=== PATIENT | female | born 1945 | race Hispanic/Latino ===

== ENCOUNTER 2017-12-18 23:51 | Emergency (ER) | payer MEDICARE ==
[2017-12-19] MEDS ORDERED: ASPIRIN 325 MG TABLET ONE (00:04)
[2017-12-19 00:11] LABS: BASOPHILS % (AUTO) 0.6 % (0.0-5.0); EOSINOPHILS % (AUTO) 1.3 % (0.0-8.0); HEMATOCRIT 38.2 % (36-48); LYMPHOCYTES % (AUTO) 33.8 % (21.0-51.0); MEAN CORPUSCULAR HEMOGLOBIN 29.7 pg (27.0-33.0); MEAN CORPUSCULAR HGB CONC 33.8 g/dL (32.0-36.0); MEAN CORPUSCULAR VOLUME 87.9 fL (79-99); MONOCYTES % (AUTO) 9.5 % (3.0-13.0); NEUTROPHILS % (AUTO) 54.8 % (40.0-77.0); PLATELET COUNT (AUTO) 330 K/uL (130-400); RED BLOOD CELL COUNT(AUTO) 4.35 MIL/uL (4.00-5.50); RED CELL DISTRIBUTION WIDTH 14.8 % (11.0-15.5); WHITE BLOOD COUNT (AUTO) 11.5 K/uL (4.8-10.8)
[2017-12-19 00:22] LABS: CREATININE 0.7 mg/dL (0.5-1.5); POTASSIUM 3.2 mmol/L (3.5-5.1)
[2017-12-19 00:37] LABS: ALBUMIN 3.2 g/dL (3.5-5.0); BILIRUBIN,TOTAL 0.5 mg/dL (0.2-1.0); CREATINE KINASE MB 0.7 ng/mL (0.5-3.6)
[2017-12-19 00:38] LABS: INR 0.94 (0.85-1.15); PARTIAL THROMBOPLASTIN TIME 28.7 SEC (26.3-35.5); PROTHROMBIN TIME 9.9 SEC (9.6-11.6)
== END 2017-12-19 03:03 | disposition home or self-care (01) ==
LOC: EDH 23:51
DX: R07.89 Other chest pain (principal); I10 Essential (primary) hypertension; E78.5 Hyperlipidemia, unspecified; I25.10 Atherosclerotic heart disease of native coronary artery without angina pectoris; Z95.818 Presence of other cardiac implants and grafts; Z72.0 Tobacco use
CPT/HCPCS: 36415; 71045; 80053; 82550; 82553; 83874; 84484; 85025; 85610; 85730; 93005; 94761

== ENCOUNTER 2022-01-22 12:44 | Emergency (ER) | payer MEDICARE ==
[~2022-01-22] VITALS: Ht 160 cm; Wt 65.8 kg
[2022-01-22 15:12] VITALS: BP 159/68
[2022-01-22] MEDS ORDERED: KETOROLAC 30MG VIAL (30MG/ML) IM STA (15:36)
[2022-01-22] MEDS ORDERED: NAPR375T6 PO (15:38)
== END 2022-01-22 16:28 | disposition home or self-care (01) ==
LOC: EDH 12:44
DX: S80.02XA Contusion of left knee, initial encounter (principal); M25.552 Pain in left hip; I10 Essential (primary) hypertension; Z90.49 Acquired absence of other specified parts of digestive tract; W18.39XA Other fall on same level, initial encounter; Y93.89 Activity, other specified; Y92.89 Other specified places as the place of occurrence of the external cause; Y99.8 Other external cause status
CPT/HCPCS: 99284; 29505; 73502; 73562; 96372; J1885

== ENCOUNTER 2024-08-15 20:45 | Emergency (ER) | payer MEDICARE ==
[~2024-08-15] VITALS: Ht 157.5 cm; Wt 59.0 kg
[~2024-08-15 20:45] MED LIST: NAPR-1505 PO
--- NOTE | 2024-08-15 21:03 | NUR ---
PATIENT WITH PROVIDER AT THIS TIME.
[2024-08-15] MEDS: LIDOCAINE 4% ADH..PATCH TP ONE (21:21)
--- NOTE | 2024-08-15 21:23 | ERN ---
General Chief Complaint: Neck Pain Stated Complaint: NECK PAIN X8 DAYS Time Seen by MD: 20:47 Source: patient History of Present Illness Initial Comments This is a 78-year-old female with a past medical history of hypertension, hypercholesterolemia, and hypothyroidism who presented to the emergency room with a 8 day history of neck pain. Patient states the pain was sudden in onset, intermittent in frequency, radiates towards her head, rates rates the pain as a 10/10. Patient denies any fall, or trauma. Denies any chest pain, shortness of breath or palpitations. Denies any lower extremity paresthesia, urinary or f ecal incontinence. Allergies: Coded Allergies: No Known Allergies (Unverified Allergy, Unknown, 01/22/22) Home Meds Active Scripts Meloxicam, Submicronized (Meloxicam) 10 Mg Capsule, 10 MG PO DAILY, #5 CAP Prov:CHAZ RAMIREZ MD 08/15/24 Lidocaine (Lidoderm Patch 5%) 5 % Patch, 1 PATCH TP DAILY for 15 Days, #30 PATCH 0 Refills may wear up to 12 hours Prov:CHAZ RAMIREZ MD 08/15/24 Diclofenac Sodium (Voltaren Arthritis Pain) 1 % Gel..gram., 20 GM TP TID, #2 G Prov:CHAZ RAMIREZ MD 08/15/24 Naproxen (Naproxen) 375 Mg Tablet.dr, 375 MG PO BID for 10 Days, #20 TAB Prov:DANIA GILLIAM MD 01/22/22 Past Medical History Past Medical History: Hypertension Past Surgical History: Cholecystectomy ROS Dictation Constitutional: No appetite loss, No fevers, chills , No night sweats, No weakness, fatigue Eye: No vision change, No redness, pain or discharge ENT: No hearing loss, ear pain or discharge, No nose bleeds, No sore throat, Neck: Neck pain Respiratory: No cough, shortness of breath, wheezing Cardiovascular: No chest pain,, palpitations, dyspnea, No edema Gastrointestinal: No abdominal pain, No nausea, vomiting, No diarrhea, constipa tion Genitourinary: No painful urination, No blood in urine, No urinary incontinence, No frequency or urgency Musculoskeletal: No joint pain, muscle pain, swelling or stiffness Neurological: No numbness, tingling, No weakness, tremors or seizures Psychiatric: : No depression, No anxiety, No sleep disturbance, No Memory changes Lymphatic: No easy bruising, No bleeding tendencies , No swollen lymph nodes A 13-point Review of Systems was assessed, all of which are negative except for HPI or as indicated above. Physical Exam Physical Exam Dictation General: Alert & Oriented, No acute distress. EENT: No conjunctival redness or discharge noted Tympanic membranes are clear, Normal hearing, Oral mucosa is moist, No pharyngeal erythema, No nasal discharge, No oral lesions. Neck: Non-tender, No jugular vein distention, No lymphadenopathy, No thyromegaly, Supple. Respiratory: Lungs are clear to auscultation, Respirations are non-labored, Breath sounds are equal, No chest wall tenderness, _. Cardiovascular: Normal rate, Normal rhythm, No murmur, Good pulses equal in all extremities, Normal peripheral perfusion, No edema. Gastrointestinal: Soft, Non-tender, Non-distended, Normal bowel sounds, No organomegaly, _. Musculoskeletal: Normal range of motion, Normal strength, tenderness, No swelling, No deformity, Normal gait. Integumentary: Warm, Dry, [place], Intact, No pallor, No rash. Neurologic: Alert, Oriented x4, Normal sensory, No focal defects Psychiatric: Cooperative, Appropriate mood & affect, Normal judgement, Non- suicidal. MDM Potential differential diagnoses include: * Degenerative spine disease * Cervical spine spondylosis Assessment: We will order a CT of the cervical spine and a CT of the head and brain without contrast. Will also order ketorolac 30 mg IV and a lidocaine patch for adequate pain management I will re-evaluate the patient after treatment and diagnostic exams have returned to determine whether they require further testing, can be safely discharged home, or need admission for further treatment and evaluation. Given the social determinants of health affecting care, including literacy, access to medical care, prescription drug management, and [id number] drugs, I will ensure that treatment plans are tailored accordingly. Revaluation : Patient is alert and oriented. States she feels a lot better the CT of the head and brain was unremarkable, cervical spine CT showed no fracture seen. Postoperative changes, degenerative joint disease with cervical spine sp ondylosis.. Disposition: Will discharge patient at this time with prescription of Meloxicam PO, Voltaren gel and lidocaine patch and instructions to follow up with PCP for further evaluation and treatment. Attestation: Patient's case was discussed with the ER MD. Reviewed the documentation, medical decision making and treatment plan. Agrees with the findings and plan of care. ED Course Orders Procedure Category Date Status Time Ct Cervical Spine W/O CT 08/15/24 Resulted Contrast 21:09 Ct Head/Brain W/O CT 08/15/24 Resulted Contrast 21:09 Ketorolac PHA 08/15/24 Complete Tromethamine 30mg/Ml 21:30 Lidocaine (Lidocaine PHA 08/15/24 Complete Patch 4%) 21:30 Current Medications Medications (Trade) Dose Ordered Sig/Jim Route PRN Reason Start Time Stop Time Status Last Admin Dose Admin Ketorolac Tromethamine (toRADol) 30 mg ONCE ONCE IM 08/15/24 21:30 08/15/24 21:35 DC 08/15/24 22:25 Lidocaine (Lidocaine Patch 4%) 1 each ONCE ONCE TP 08/15/24 21:30 08/15/24 21:31 DC 08/15/24 21:21 Vital Signs Date Time Temp Pulse Resp B/P (MAP) Pulse Ox O2 Delivery O2 Flow Rate FiO2 08/15/24 22:54 98.8 22 18 158/78 99 Room Air* 0 21 08/15/24 21:13 98.8 72 18 174/85 97 Room Air 0 DX & DISP Disposition: Discharge Departure Impression: Primary Impression: Degenerative joint disease Additional Impression: Spondylosis of cervical spine Critical Time: 30 minutes Condition: Stable Scripts Acetaminophen with Codeine (Acetaminophen-Cod #3 Tablet) 300 Mg-30 Mg Tablet 1 TAB PO Q6HPRN PRN for pain for 5 Days, #20 TAB 0 Refills Prov: JUDY BATEMAN DO 08/15/24 Meloxicam, Submicronized (Meloxicam) 10 Mg Capsule 10 MG PO DAILY, #5 CAP Prov: CHAZ RAMIREZ MD 08/15/24 Lidocaine (Lidoderm Patch 5%) 5 % Patch 1 PATCH TP DAILY for 15 Days, #30 PATCH 0 Refills may wear up to 12 hours Prov: CHAZ RAMIREZ MD 08/15/24 Diclofenac Sodium (Voltaren Arthritis Pain) 1 % Gel..gram. 20 GM TP TID, #2 G Prov: CHAZ RAMIREZ MD 08/15/24 Additional Instructions: Discharge Instructions: *Follow up with your primary care physician in 2 - 3 days after discharge. *Continue all medications as prescribed. Do not discontinue or change dosages without consulting your PCP. *Gradually resume normal activities as tolerated. *Continue a balanced diet . Reduce salt intake to help manage BP. *Seek immediate medical attention if you experience chest pain, SOB or severe headache. *Smoking cessation is strongly advised. Resources for quitting smoking are available upon request. Referrals: EVERARDO HOUSTON MD (PCP) I performed a substantive portion of the visit. I have reviewed and personally made and approve the management plan that is documented in the notes by myself with JEAN PAUL/resident. I acknowledged full responsibility for the patient's manag ement plan. CHAZ RAMIREZ MD Aug 15, 2024 21:23 JUDY BATEMAN DO Aug 15, 2024 23:28
--- NOTE | 2024-08-15 22:15 | HMCIMG ---
CT HEAD/BRAIN W/O CONTRAST HISTORY: Neck pain COMPARISON: None TECHNIQUE: Multiple sequential axial images of the head were obtained from the base of the skull through vertex. Patient was not given contrast through intravenous route. FINDINGS: The study is limited due to poor positioning. The ventricles and extraventricular CSF spaces are nondilated for patient's age. There is no midline shift, mass effect or herniation. No acute intracranial bleed is seen. Visualized portion of the paranasal sinuses are grossly within normal limits. IMPRESSION: 1. No acute intracranial bleed is seen. CT was performed with one or more following dose reduction techniques: automated exposure control, adjustment of the mA and kv according to patient's size, or use of a iterative reconstruction technique.
--- NOTE | 2024-08-15 22:16 | HMCIMG ---
CT CERVICAL SPINE W/O CONTRAST HISTORY: Neck pain COMPARISON: None TECHNIQUE: Multiple sequential axial images of the cervical spine were obtained including post processing sagittal and coronal reconstruction images. Patient was not given contrast through intravenous route. FINDINGS: Orthopedic fixation plates and screws are seen traversing the C4-C7 levels. This effusions are seen at C4-5 and C5-C6 levels. Central canal narrowing is also seen. There is atherosclerosis. There are degenerative changes with cervical spine spondylosis. There is reversal of normal lordotic cervical curvature which may be related to muscle spasm or positioning. There is no loss of vertebral height. Evaluation for disc and cord pathology is limited with CT study. No evidence of fracture or dislocation is seen. IMPRESSION: 1. No fracture is seen. Postop changes. DJD with cervical spine spondylosis. CT was performed with one or more following dose reduction techniques: automated exposure control, adjustment of the mA and kv according to patient's size, or use of a iterative reconstruction technique.
[2024-08-15] MEDS: ketOROlac 30MG VIAL (30MG/ML) IM ONE (22:25)
[2024-08-15] MEDS ORDERED: MELO10CA3 PO (22:50)
[2024-08-15] MEDS ORDERED: LIDOP TP (22:50)
[2024-08-15] MEDS ORDERED: DICL20GE TP (22:50)
[2024-08-15 22:54] VITALS: BP 158/78; PULSE 22; RESP 18; TEMP 98.8; O2SAT 99
[2024-08-15] MEDS ORDERED: ACET-2079 PO (23:26)
== END 2024-08-15 22:56 | disposition home or self-care (01) ==
LOC: EDH 20:45
DX: M47.812 Spondylosis without myelopathy or radiculopathy, cervical region (principal); E03.9 Hypothyroidism, unspecified; E78.00 Pure hypercholesterolemia, unspecified; I10 Essential (primary) hypertension; Z79.1 Long term (current) use of non-steroidal anti-inflammatories (NSAID); Z90.49 Acquired absence of other specified parts of digestive tract
CPT/HCPCS: 99285; 70450; 72125; 96372; J1885